=== PATIENT | female | born 1970 | race African-American/Black ===

== ENCOUNTER 2017-12-10 16:28 | Inpatient (IN) ==
[2017-12-10] MEDS ORDERED: Acetaminophen 325 MG Tablet PO ONE (16:59)
[2017-12-10] MEDS ORDERED: hydrALAZINE HCl Inj 20 MG/ML Vial IV.PUSH ONE (16:59)
[2017-12-10 17:14] LABS: Baso # (Auto) 0.1 th/mm3 (0.0-0.2); Baso % (Auto) 0.8 % (0.0-2.0); Eos # (Auto) 0.1 th/mm3 (0.0-0.4); Hematocrit 38.7 % (35.0-46.0); Hemoglobin 12.5 gm/dL (11.6-15.3); Lymph # (Auto) 1.7 th/mm3 (1.0-4.8); Lymph % (Auto) 25.6 % (9.0-44.0); Mean Corpuscular HGB Conc 32.4 % (32.0-36.0); Mean Corpuscular Hemoglobin 25.5 pg (27.0-34.0); Mean Corpuscular Volume 78.6 fL (80.0-100.0); Mean Platelet Volume 7.6 fL (7.0-11.0); Mono # (Auto) 0.4 th/mm3 (0.0-0.9); Mono % (Auto) 6.1 % (0.0-8.0); Neut # (Auto) 4.2 th/mm3 (1.8-7.7); Neut % (Auto) 65.5 % (16.0-70.0); Platelet Count 325 th/mm3 (150-450); Red Blood Count 4.92 mil/mm3 (4.00-5.30); Red Cell Distribution Width 14.4 % (11.6-17.2); White Blood Count 6.5 th/mm3 (4.0-11.0)
[2017-12-10 17:20] LABS: Chloride 106 meq/L (98-107); Potassium 3.4 meq/L (3.5-5.1); Sodium 141 meq/L (136-145)
--- NOTE | 2017-12-10 17:20 | XR ---
EXAM DATE: 12/10/2017 4:59 PM EDT AGE/SEX: 47 years / Female INDICATIONS: Patient states high blood pressure today. CLINICAL DATA: This is the patient's initial encounter. Patient reports that signs and symptoms have been present for 1 day and indicates a pain score of 0/10. MEDICAL/SURGICAL HISTORY: Hypertension. None. COMPARISON: No prior exams available for comparison. FINDINGS: A single AP view of the chest demonstrates the lungs to be symmetrically aerated without evidence of mass, infiltrate or effusion. The cardiomediastinal contours are unremarkable. Osseous structures a re intact. CONCLUSION: No acute intrathoracic disease. Electronically signed by: Zachery Ag MD 12/10/2017 5:19 PM EDT
[2017-12-10 17:23] LABS: Albumin 3.9 g/dL (3.4-5.0); Anion Gap 9 meq/L (5-15); Blood Urea Nitrogen 21 mg/dL (7-18); Calcium 9.8 mg/dL (8.5-10.1); Carbon Dioxide 25.8 meq/L (21.0-32.0); Glucose,Random 85 mg/dL (74-106)
[2017-12-10 17:26] LABS: Alanine Aminotransferase 18 U/L (10-53)
[2017-12-10 17:27] LABS: Aspartate Aminotransferase 15 U/L (15-37); Glomerular Filtration Rate 45 mL/min (>89)
[2017-12-10 17:28] LABS: Total Protein 7.5 g/dL (6.4-8.2)
[2017-12-10 17:29] LABS: Alkaline Phosphatase 118 U/L (45-117)
[2017-12-10 17:40] LABS: Activated Partial Thrombo Time 30.3 sec (24.3-30.1); Prothrombin Time 10.6 sec (9.8-11.6)
[2017-12-10 17:41] LABS: Creatine Kinase 74 U/L (26-192)
--- NOTE | 2017-12-10 17:51 | CT ---
EXAM DATE: 12/10/2017 5:11 PM EDT AGE/SEX: 47 years / Female INDICATIONS: Headache. CLINICAL DATA: This is the patient's initial encounter. Patient reports that signs and symptoms have been present for 1 week and indicates a pain score of 8/10. MEDICAL/SURGICAL HISTORY: Hypertension. Hysterectomy. RADIATION DOSE: 52.56 CTDI (mGy) COMPARISON: No prior exams available for comparison. TECHNIQUE: CT of the head without contrast. Using automated exposure control and adjustment of the mA and/or kV according to patient size, radiation dose was kept as low as reasonably achievable to ob tain optimal diagnostic quality images. DICOM format image data is available electronically for revi ew and comparison. FINDINGS: Cerebrum: The ventricles are normal for age. No evidence of midline shift, mass lesion, hemorrhage or acute infarction. No extraaxial fluid collections are seen. Posterior Fossa: The cerebellum and brainstem are intact. The 4th ventricle is midline. The cerebe llopontine angle is unremarkable. Extracranial: The visualized portion of the orbits is intact. Skull: The calvaria is intact. No evidence of skull fracture. CONCLUSION: 1. Unremarkable CT scan of the brain. . Electronically signed by: Zachery Ag MD 12/10/2017 5:50 PM EDT
[2017-12-10] MEDS ORDERED: Sod Chloride 0.9% Inj 1,000 ML IV.SIG SCH (18:15)
--- NOTE | 2017-12-10 19:01 | ED ---
HPI General Chief complaint: Hypertension Stated complaint: high bp Time Seen by Provider: 12/10/17 16:45 Source: patient Mode of arrival: ambulatory Limitations: no limitations History of Present Illness HPI narrative: Patient is a 47 year old female who comes in complaining of headache, left arm pain, and high blood pressure. She was here 3 weeks ago and discharged with Metoprolol. She says that Metoprolol does not work for her blood pressure. She went to a primary care doctor today, who took her blood pressure and told her to come immediately to the ED because it was too high. She says she has nausea and vomiting. She denies chest pain. She says she just doesn't feel well. Her says she has been weak and tired. Severity is moderate. Related Data Previous Rx's Medication Instructions Recorded metoprolol succinate 50 mg PO DAILY #20 each 11/18/17 Allergies Allergy/AdvReac Type Severity Reaction Status Date / Time No Known Allergies Allergy Verified 12/10/17 16:35 Review of Systems ROS: all other systems reviewed are negative Constitutional Denies chills and Denies fever(s) ENT Reports dizziness and Reports headache(s) Cardiovascular Denies syncope Respiratory Denies cough and Denies dyspnea Gastrointestinal Reports nausea and Reports vomiting Musculoskeletal Denies myalgias and Denies arthralgias Integumentary/Breasts Denies sores and Denies wounds Neurologic Denies lack of coordination and Denies focal weakness [facility] Medical History Medical History History of hypertension (Acute) Surgical History Surgical History History of partial hysterectomy (Acute) Social History Social History Substance History: No History of Abuse Smoking Status: Never smoker How Often Do You Have a Drink Containing Alcohol: Never Recent Travel in [facility] within the Last 8 Weeks: No Recent Out of Country Travel within the Last 8 Weeks: No Immunization History Tetanus Immunization: <5 Years Exam Narrative Exam Narrative: GENERAL: Awake and alert, appears uncomfortable. SKIN: Focused skin assessment warm/dry. HEAD: Atraumatic. Normocephalic. EYES: Pupils equal and round and reactive. No scleral icterus. EOMI. ENT: Mucous membranes pink and moist. NECK: Trachea midline. No JVD. CARDIOVASCULAR: Regular rate and rhythm. No murmur appreciated. RESPIRATORY: No accessory muscle use. Clear to auscultation. Breath sounds equal bilaterally. GASTROINTESTINAL: Abdomen soft, non-tender, nondistended. MUSCULOSKELETAL: No obvious deformities. No clubbing. No cyanosis. No edema. NEUROLOGICAL: Awake and alert. No obvious cranial nerve deficits. Motor grossly within normal limits. Normal speech. PSYCHIATRIC: Appropriate mood and affect; insight and judgment normal. Course Initial Documented Vital Signs Temperature 99 F 12/10/17 16:31 Pulse Rate 106 H 12/10/17 16:31 Respiratory Rate 16 12/10/17 16:31 Blood Pressure 245/152 H 12/10/17 16:31 Pulse Oximetry 99 12/10/17 16:31 Last Documented Vital Signs Temperature 99 F 12/10/17 16:31 Pulse Rate 111 H 12/10/17 19:03 Respiratory Rate 16 12/10/17 19:03 Blood Pressure 192/94 H 12/10/17 19:20 Pulse Oximetry 94 L 12/10/17 19:03 Medical Decision Making [facility] Narrative Medical decision making narrative: Patient is a 47-year-old female who comes in complaining of headache, nausea, vomiting, left arm pain, high blood pressure. Exam shows no neurologic abnormalities. IV established, labs sent. Patient given Tylenol, p.o. Benadryl, Compazine. Given a dose of hydralazine as her initial blood pressure was 254 systolic. While here, patient had an episode where she became diaphoretic and dizzy. She was helped back to the bed and her blood pressure was found to be 90 systolic. She was given IV fluids, and her blood pressure improved. She received a total of about 250 mL. On arrival, her ECG showed normal sinus rhythm, rate of 95, no ST elevation or depression. After the episode of dizziness and diaphoresis, ECG was repeated with T wave inversions found to be in leads V3 through V5. Patient never did experience any chest pain. CT head performed shows no acute abnormalities. Patient's blood pressure is quite labile, there is concern for ischemia. I believe she would benefit from admission. Medical Screen Exam Complete: Yes Emergency Medical Condition: Yes Differential Diagnosis Differential Diagnosis: Hypertensive urgency versus migraine versus [facility] Medical Records Medical records reviewed: Yes I reviewed the patient's medical records. Lab Data Lab results reviewed: Yes I reviewed the patient's lab results. Result diagrams: 12/10/17 17:00 12/10/17 17:00 Lab Results 12/10/17 12/10/17 12/10/17 Range/Units 17:00 17:00 17:00 CBC w Diff Auto diff final WBC 6.5 (4.0-11.0) th/mm3 RBC 4.92 (4.00-5.30) mil/mm3 Hgb 12.5 (11.6-15.3) gm/dL Hct 38.7 (35.0-46.0) % MCV 78.6 L (80.0-100.0) fL MCH 25.5 L (27.0-34.0) pg MCHC 32.4 (32.0-36.0) % RDW 14.4 (11.6-17.2) % Plt Count 325 (150-450) th/mm3 MPV 7.6 (7.0-11.0) fL Neut % (Auto) 65.5 (16.0-70.0) % Lymph % (Auto) 25.6 (9.0-44.0) % Door % (Auto) 6.1 (0.0-8.0) % Eos % (Auto) 2.0 (0.0-4.0) % Baso % (Auto) 0.8 (0.0-2.0) % Neut # (Auto) 4.2 (1.8-7.7) th/mm3 Lymph # (Auto) 1.7 (1.0-4.8) th/mm3 Door # (Auto) 0.4 (0.0-0.9) th/mm3 Eos # (Auto) 0.1 (0.0-0.4) th/mm3 Baso # (Auto) 0.1 (0.0-0.2) th/mm3 WBC Differential . Differential Comment . PT 10.6 (9.8-11.6) sec INR 1.0 Ratio APTT 30.3 H (24.3-30.1) sec Sodium 141 (136-145) meq/L Potassium 3.4 L (3.5-5.1) meq/L Chloride 106 (98-107) meq/L Carbon Dioxide 25.8 (21.0-32.0) meq/L Anion Gap 9 (5-15) meq/L BUN 21 H (7-18) mg/dL Creatinine 1.50 H (0.50-1.00) mg/dL Estimated GFR 45 L (>89) mL/min Random Glucose 85 (74-106) mg/dL Calcium 9.8 (8.5-10.1) mg/dL Total Bilirubin 0.5 (0.2-1.0) mg/dL AST 15 (15-37) U/L ALT 18 (10-53) U/L Alkaline Phosphatase 118 H (45-117) U/L Total Creatine Kinase 74 (26-192) U/L Troponin I Less than 0.02 L (0.02-0.05) ng/mL Total Protein 7.5 (6.4-8.2) g/dL Albumin 3.9 (3.4-5.0) g/dL Imaging Data Radiologist's impression: Chest X-Ray 12/10/17 16:59 CONCLUSION: No acute intrathoracic disease. Head CT 12/10/17 16:59 CONCLUSION: 1. Unremarkable CT scan of the brain. . ECG Data EKG Prior to Arrival: No Attestation: I personally reviewed and interpreted this ECG as follows: Interpretation: ECG 1: NSR at rate of 95, no ST elevation or depression, normal intervals ECG 2 (18:20), NSR at rate of 81. No ST elevation or depression, new T wave inversions leads V3-V5 Discharge Plan Discharge Disposition Patient Disposition: 30 Still Patient Discharge Condition Condition: Stable Discharge Details Diagnosis: Hypertensive urgency Physicians Team ED Provider: Danyell Perez Primary Care Provider: Primary Care Sarah Mclain Rxs /Orders / Referrals /Forms Prescriptions: No Action metoprolol succinate 50 mg cap,sprinkle,ER 24hr dose pack 50 mg PO DAILY Qty: 20 RF: 0 Status ED Status: With Doctor
[2017-12-10] MEDS: Acetaminophen 325 MG Tablet PO PRN (20:56)
[2017-12-11 01:59] LABS: Troponin I 0.19 ng/mL (0.02-0.05)
[2017-12-11] MEDS: Acetaminophen 325 MG Tablet PO PRN ×2 (03:02→10:52)
[2017-12-11 05:10] LABS: Baso # (Auto) 0.4 th/mm3 (0.0-0.2); Baso % (Auto) 4.8 % (0.0-2.0); Eos % (Auto) 0.1 % (0.0-4.0); Hematocrit 36.7 % (35.0-46.0); Hemoglobin 12.1 gm/dL (11.6-15.3); Lymph # (Auto) 1.2 th/mm3 (1.0-4.8); Mean Corpuscular Hemoglobin 25.8 pg (27.0-34.0); Mean Corpuscular Volume 77.9 fL (80.0-100.0); Mono # (Auto) 0.4 th/mm3 (0.0-0.9); Mono % (Auto) 4.6 % (0.0-8.0); Neut # (Auto) 5.7 th/mm3 (1.8-7.7); Neut % (Auto) 75.5 % (16.0-70.0); Platelet Count 311 th/mm3 (150-450); Potassium 3.4 meq/L (3.5-5.1); Red Blood Count 4.72 mil/mm3 (4.00-5.30); Red Cell Distribution Width 14.8 % (11.6-17.2); White Blood Count 7.7 th/mm3 (4.0-11.0)
[2017-12-11 05:14] LABS: Calcium 9.8 mg/dL (8.5-10.1)
[2017-12-11 05:15] LABS: Carbon Dioxide 24.1 meq/L (21.0-32.0)
[2017-12-11 05:24] LABS: Troponin I 0.13 ng/mL (0.02-0.05)
[2017-12-11] MEDS ORDERED: hydrALAZINE HCl Inj 20 MG/ML Vial IV.PUSH PRN (10:15)
--- NOTE | 2017-12-11 14:17 | P.HP ---
History of Present Illness Primary Care Physician: No Primary Care Physician Chief Complaint: Elevated blood pressure History of Present Illness: 47-year-old female with long-standing history of hypertension who presented to the hospital the request of [facility] for evaluation of elevated blood pressure. Patient states that she was being [place] for high blood pressure on combination of amlodipine, clonidine with control of her blood pressure. Patient moved down here from [place] and started going to Dr. Bowden about a year ago. She and her indicates that they did not want to continue with Dr. Bowden and has not been to a primary medical doctor and in a few months. She indicates that she was put on metoprolol without any improvement of her blood pressure. She did come to the emergency department 1 month ago and was started on metoprolol again, she states that she took the medication until completion, records indicate that the patient was given 20 days worth of blood pressure medication. Patient indicates that they went to [facility] and was told to come to the emergency department for evaluation because blood pressure was 220/129. On presentation to the emergency department patient did have blood pressure 245/152. Patient was given Apresoline and clonidine with significant improvement of her blood pressure. Patient states that her only symptom was headache. She denied any chest pain, shortness of breath, dyspnea, lightheadedness, dizziness, diaphoresis. - Diagnosis (1) Hypertensive urgency Inpatient Certification: I certify that the inpatient services were ordered in accordance with Medicare regulations governing the order. This includes certification that hospital inpatient services are reasonable and necessary and in the case of services not specified as inpatient-only under 42 CFR 419.22(n), that they are appropriately provided as inpatient services in accordance to with the 2-midnight benchmark under 43 CFR 412.3(e) Estimated Total Length of Stay (Days): 2 Plans for Post Hospital Care: Home Review of Systems All other systems reviewed negative except as stated in HPI Neurologic: Reports headache(s) PMFSH - History History Provided By: Patient, Family Member - Medical History Medical History: Medical History (Last Reviewed 12/10/17 @ 19:08 by Danyell Perez MD) History of hypertension - Surgical History Surgical History: Surgical History (Last Reviewed 12/10/17 @ 19:08 by Danyell Perez MD) History of partial hysterectomy - Family History Family History: Family History (Last Updated 12/11/17 @ 14:06 by AIMEE Martines) Mother Family history of hypertension - Tobacco History Smoking Status: Never smoker - Alcohol History How Often Do You Have a Drink Containing Alcohol: Never - Substance Use History Substance History: No History of Abuse - Travel History Recent Travel in the [place] Within the Last 8 Weeks: No Recent Travel Out of the Country Within the Last 8 Weeks: No - Immunization History Tetanus Immunization: <5 Years Medications and Allergies Active Medications: Active Medications Acetaminophen (Tylenol) 650 mg PO Q4H PRN PRN Reason: HEADACHE Last Admin: 12/11/17 10:52 Dose: 650 mg Clonidine HCl (Catapres) 0.1 mg PO Q6H PRN PRN Reason: SBP>160, DBP>90 Last Admin: 12/11/17 10:52 Dose: 0.1 mg Clonidine HCl (Catapress-Tts 0.1 Mg Patch.7d) 1 patch T-DERMAL Q7D ROBE Enalaprilat (Vasotec Inj) 1.25 mg IV.PUSH Q6H PRN PRN Reason: SBP>160, DBP>90 Sodium Chloride (Ns Inj) 1,000 mls @ 0 mls/hr IV.SIG BOLUS ROBE Ondansetron HCl (Zofran Inj) 4 mg IV.PUSH Q6H PRN PRN Reason: NAUSEA OR VOMITING Last Admin: 12/11/17 01:19 Dose: 4 mg Patch Removal (Remove Old Patch) 1 each T-DERMAL Q7D ROBE Sodium Chloride (Ns Flush) 2 ml IV.FLUSH UNSCH PRN PRN Reason: FLUSH AFTER USING IV ACCESS Last Admin: 12/11/17 01:19 Dose: 2 ml Allergies Allergy/AdvReac Type Severity Reaction Status Date / Time No Known Allergies Allergy Verified 12/10/17 16:35 Exam Vital signs: Vital Signs 12/10/17 16:31 12/10/17 17:20 12/10/17 18:15 Temperature 99 F Pulse Rate 106 H 100 H 98 H Respiratory Rate 16 18 14 Blood Pressure 245/152 H 229/132 H 108/61 Pulse Oximetry 99 95 97 12/10/17 19:03 12/10/17 19:20 12/10/17 20:00 Temperature 98.7 F Pulse Rate 111 H 99 H Respiratory Rate 16 16 Blood Pressure 192/112 H 192/94 H 211/118 H Pulse Oximetry 94 L 99 12/10/17 20:20 12/10/17 20:22 12/10/17 20:28 Temperature Pulse Rate 110 H Respiratory Rate 14 Blood Pressure 211/118 H 213/109 H Pulse Oximetry 97 98 12/10/17 20:30 12/10/17 20:57 12/10/17 21:00 Temperature Pulse Rate 122 H 106 H 102 H Respiratory Rate 14 13 Blood Pressure 193/106 H 199/106 H Pulse Oximetry 98 12/10/17 21:15 12/10/17 21:30 12/10/17 21:45 Temperature Pulse Rate 114 H 100 H 104 H Respiratory Rate 13 12 13 Blood Pressure 189/109 H 180/97 H 164/89 H Pulse Oximetry 12/10/17 22:00 12/10/17 22:15 12/10/17 22:30 Temperature Pulse Rate 102 H 96 H 102 H Respiratory Rate 13 12 12 Blood Pressure 160/93 H 177/110 H 178/92 H Pulse Oximetry 12/10/17 22:45 12/10/17 23:00 12/10/17 23:29 Temperature Pulse Rate 102 H 102 H 102 H Respiratory Rate 13 15 14 Blood Pressure 161/87 H 135/91 H Pulse Oximetry 95 12/10/17 23:59 12/11/17 00:00 12/11/17 00:29 Temperature 98.7 F Pulse Rate 92 H 92 H 88 Respiratory Rate 13 15 14 Blood Pressure 161/88 H 161/88 H 159/94 H Pulse Oximetry 97 97 96 12/11/17 01:00 12/11/17 01:30 12/11/17 02:00 Temperature Pulse Rate 96 H 80 86 Respiratory Rate 23 11 L 11 L Blood Pressure 185/115 H 195/113 H 164/91 H Pulse Oximetry 98 97 97 12/11/17 05:28 12/11/17 07:00 12/11/17 08:00 Temperature Pulse Rate 86 82 Respiratory Rate 11 L 10 L Blood Pressure 162/104 H 160/83 H Pulse Oximetry 97 97 97 12/11/17 08:18 12/11/17 09:00 12/11/17 10:00 Temperature Pulse Rate 88 Respiratory Rate 11 L Blood Pressure 156/93 H 160/104 H Pulse Oximetry 97 12/11/17 10:07 12/11/17 11:00 12/11/17 11:58 Temperature 98.9 F Pulse Rate 86 92 H 94 H Respiratory Rate 11 L 13 10 L Blood Pressure 170/99 H 180/105 H 193/112 H Pulse Oximetry 12/11/17 12:19 12/11/17 13:24 Temperature Pulse Rate 90 Respiratory Rate 12 Blood Pressure 166/95 H 163/98 H Pulse Oximetry Intake & Output 12/10/17 12/11/17 12/11/17 18:59 06:59 18:59 Intake Total 240 / 240 Output Total 450 / 450 Balance -210 / -210 Weight 58.5 kg 56.6 kg Intake: Oral 240 / 240 Output: Urine 450 / 450 Other: Date of Last Bowel Movement 12/09/17 12/09/17 Weight On Admission 56.6 kg Narrative: GENERAL: Well-developed, well-nourished, in no acute distress. alert and orientated HEENT: Head is normocephalic without any lesions or masses noted. Facial features are symmetric. Eyes: Pupils equal round reactive to light. Extraocular muscles are intact. Conjunctivae were clear. Oropharyngeal: Pharynx without any erythema edema. Tongue is midline without deviation. Buccal mucosa is moist without any masses or lesions NECK: Supple without any masses. Trachea midline no deviation. No JVD, no bruits are appreciated CARDIAC: Regular rhythm, regular rate. S1/S2 are heard. 2/6 ejection murmur, no gallops or rubs. LUNGS: Clear to auscultation bilaterally. No wheeze, rhonchi or rales. No use of accessory muscles on inspiration or expiration. ABDOMEN: Soft, nontender. Nondistended. Bowel sounds heard in all 4 quadrants. No organomegaly or masses. Negative rebound, negative guarding EXTREMITIES: No edema, pulses are equal bilaterally. No cyanosis or clubbing NEUROLOGY: Mood and affect appear appropriate. Cranial nerves II through XII grossly intact. Muscle strength 5/5 in upper and lower extremities bilaterally. Deep tendon reflexes are 2+ in upper and lower extremities bilaterally. Results - Labs CBC & Chem 7: 12/11/17 04:35 12/11/17 04:35 Labs: Laboratory Results - last 24 hr 12/10/17 12/10/17 12/10/17 17:00 17:00 17:00 CBC w Diff Auto diff final WBC 6.5 RBC 4.92 Hgb 12.5 Hct 38.7 MCV 78.6 L MCH 25.5 L MCHC 32.4 RDW 14.4 Plt Count 325 MPV 7.6 Neut % (Auto) 65.5 Lymph % (Auto) 25.6 [place] % (Auto) 6.1 Eos % (Auto) 2.0 Baso % (Auto) 0.8 Neut # (Auto) 4.2 Lymph # (Auto) 1.7 [place] # (Auto) 0.4 Eos # (Auto) 0.1 Baso # (Auto) 0.1 WBC Differential . Differential Comment . PT 10.6 INR 1.0 APTT 30.3 H Sodium 141 Potassium 3.4 L Chloride 106 Carbon Dioxide 25.8 Anion Gap 9 BUN 21 H Creatinine 1.50 H Estimated GFR 45 L Random Glucose 85 Calcium 9.8 Total Bilirubin 0.5 AST 15 ALT 18 Alkaline Phosphatase 118 H Total Creatine Kinase 74 Troponin I Less than 0.02 L Total Protein 7.5 Albumin 3.9 12/11/17 12/11/17 12/11/17 01:30 04:35 04:35 CBC w Diff Auto diff final WBC 7.7 RBC 4.72 Hgb 12.1 Hct 36.7 MCV 77.9 L MCH 25.8 L MCHC 33.0 RDW 14.8 Plt Count 311 MPV 9.0 Neut % (Auto) 75.5 H Lymph % (Auto) 15.0 [place] % (Auto) 4.6 Eos % (Auto) 0.1 Baso % (Auto) 4.8 H Neut # (Auto) 5.7 Lymph # (Auto) 1.2 [place] # (Auto) 0.4 Eos # (Auto) 0.0 Baso # (Auto) 0.4 H WBC Differential . Differential Comment . PT INR APTT Sodium 140 Potassium 3.4 L Chloride 105 Carbon Dioxide 24.1 Anion Gap 11 BUN 22 H Creatinine 1.60 H Estimated GFR 41 L Random Glucose 91 Calcium 9.8 Total Bilirubin AST ALT Alkaline Phosphatase Total Creatine Kinase 64 Troponin I 0.19 H D Total Protein Albumin 12/11/17 04:35 CBC w Diff WBC RBC Hgb Hct MCV MCH MCHC RDW Plt Count MPV Neut % (Auto) Lymph % (Auto) [place] % (Auto) Eos % (Auto) Baso % (Auto) Neut # (Auto) Lymph # (Auto) [place] # (Auto) Eos # (Auto) Baso # (Auto) WBC Differential Differential Comment PT INR APTT Sodium Potassium Chloride Carbon Dioxide Anion Gap BUN Creatinine Estimated GFR Random Glucose Calcium Total Bilirubin AST ALT Alkaline Phosphatase Total Creatine Kinase 66 Troponin I 0.13 H Total Protein Albumin - Imaging Impressions Chest X-Ray 12/10/17 16:59 CONCLUSION: No acute intrathoracic disease. Head CT 12/10/17 16:59 CONCLUSION: 1. Unremarkable CT scan of the brain. . Caprini VTE Risk Assessment Caprini VTE Risk Assessment: Moderate/High Risk (score >= 2) Caprini Risk Assessment Model: Point Value = 1 Point Value = 2 Point Value = 3 Point Value = 5 Age 41-60 Minor surgery BMI > 25 kg/m2 Swollen legs Varicose veins or History of unexplained or recurrent spontaneous Oral contraceptives or hormone replacement Sepsis (< 1 month) Serious lung disease, including pneumonia (< 1 month) Abnormal pulmonary function Acute myocardial infarction Congestive heart failure (< 1 month) History of inflammatory bowel disease Medical patient at bed rest Age 61-74 Arthroscopic surgery Major open surgery (> 45 min) Laparoscopic surgery (> 45 min) Malignancy Confined to bed (> 72 hours) Immobilizing plaster cast Central venous access Age >= 75 History of VTE Family history of VTE Factor V Leiden Prothrombin [id number] Lupus anticoagulant Anticardiolipin antibodies Elevated serum homocysteine Heparin-induced thrombocytopenia Other congenital or acquired thrombophilia Stroke (< 1 month) Elective arthroplasty Hip, pelvis, or leg fracture Acute spinal cord injury (< 1 month) Prophylaxis Regimen: Total Risk Factor Score Risk Level Prophylaxis Regimen 0-1 Low Early ambulation 2 Moderate Order ONE of the following: *Sequential Compression Device (SCD) *Heparin 5000 units SQ BID 3-4 Higher Order ONE of the following medications: *Heparin 5000 units SQ TID *Enoxaparin/Lovenox 40 mg SQ daily (WT < 150 kg, CrCl > 30 mL/min) *Enoxaparin/Lovenox 30 mg SQ daily (WT < 150 kg, CrCl > 10-29 mL/min) *Enoxaparin/Lovenox 30 mg SQ BID (WT < 150 kg, CrCl > 30 mL/min) AND/OR *Sequential Compression Device (SCD) 5 or more Highest Order ONE of the following medications: *Heparin 5000 units SQ TID (Preferred with Epidurals) *Enoxaparin/Lovenox 40 mg SQ daily (WT < 150 kg, CrCl > 30 mL/min) *Enoxaparin/Lovenox 30 mg SQ daily (WT < 150 kg, CrCl > 10-29 mL/min) *Enoxaparin/Lovenox 30 mg SQ BID (WT < 150 kg, CrCl > 30 mL/min) AND *Sequential Compression Device (SCD) Assessment and Plan - Assessment (1) Hypertensive urgency Code(s): I16.0 - Hypertensive urgency Status: Acute - Plan Hypertensive urgency -Patient with good response to Apresoline/clonidine in the emergency department. Only required one more dose of as needed clonidine since admission -We will start Catapres 0.1 mg patch to help with stability of blood pressure -Obtain MRA of the abdomen to evaluate for renal artery stenosis -Obtain 24-hour urine catecholamines Elevated troponin -Likely secondary to demand ischemia from uncontrolled hypertension -Patient had a acute elevation to 0.19, however has trended down to 0.13 -Consult cardiology for further recommendations -Physical exam indicated patient has cardiac murmur, will obtain echocardiogram Azotemia, unknown whether acute versus chronic -Patient had ER visit a month ago and had GFR of 53, what appears the patient likely has chronic kidney disease stage III, 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
[2017-12-11] MEDS: niCARdipine Inj 25 MG in Sodium Chlor 0.9% Inj 240 ML IV.CONT PRN ×2 (17:53→20:50)
[2017-12-12] MEDS: niCARdipine Inj 25 MG in Sodium Chlor 0.9% Inj 240 ML IV.CONT PRN (01:40)
[2017-12-12 05:11] LABS: Potassium 3.2 meq/L (3.5-5.1)
[2017-12-12 05:13] LABS: Calcium 9.6 mg/dL (8.5-10.1)
[2017-12-12 05:14] LABS: Carbon Dioxide 29.3 meq/L (21.0-32.0)
[2017-12-12 08:22] LABS: Troponin I 0.05 ng/mL (0.02-0.05)
[2017-12-12] MEDS: amLODIPine 10 MG Tablet PO SCH (08:24)
--- NOTE | 2017-12-12 08:26 | P.PN ---
Subjective Interval history: 47-year-old female who is seen and examined today for hypertensive urgency. Patient is doing much better on Cardene drip. Case discussed extensively with lens silverer. Patient states that she does feel much better. Headache has almost completely subsided. Blood pressure is improved. Patient remains afebrile. Physical Exam Vital signs: Vital Signs 12/11/17 09:00 12/11/17 10:00 12/11/17 10:07 Temperature Pulse Rate 88 86 Respiratory Rate 11 L 11 L Blood Pressure 156/93 H 160/104 H 170/99 H Pulse Oximetry 12/11/17 11:00 12/11/17 11:58 12/11/17 12:19 Temperature 98.9 F Pulse Rate 92 H 94 H 90 Respiratory Rate 13 10 L 12 Blood Pressure 180/105 H 193/112 H 166/95 H Pulse Oximetry 12/11/17 13:21 12/11/17 13:24 12/11/17 14:00 Temperature Pulse Rate 94 H 86 Respiratory Rate 15 11 L Blood Pressure 163/78 H 163/98 H 169/87 H Pulse Oximetry 12/11/17 15:00 12/11/17 16:00 12/11/17 16:52 Temperature Pulse Rate 78 76 88 Respiratory Rate 10 L 11 L 14 Blood Pressure 183/97 H 197/111 H 202/131 H Pulse Oximetry 12/11/17 17:00 12/11/17 17:26 12/11/17 18:15 Temperature Pulse Rate 96 H 82 94 H Respiratory Rate 21 10 L 11 L Blood Pressure 226/119 H 197/112 H 186/101 H Pulse Oximetry 12/11/17 19:55 12/11/17 20:00 12/12/17 00:00 Temperature 98.9 F 98.5 F Pulse Rate 118 H 102 H Respiratory Rate 14 12 Blood Pressure 129/71 149/84 H Pulse Oximetry 95 96 96 12/12/17 04:00 Temperature 98.2 F Pulse Rate 80 Respiratory Rate 10 L Blood Pressure 136/75 Pulse Oximetry 95 Intake & Output 12/11/17 12/12/17 12/12/17 18:59 06:59 18:59 Intake Total 1106 / 1106 Output Total 550 / 550 1250 / 1250 Balance -550 / -550 -144 / -144 Weight 56.8 kg Intake: IV 626 / 626 Cardene Inj 25 MG In NS Inj 240 626 / 626 ML @ 5 MG/HR 50 mls/hr IV.CONT TITRATE PRN Rx#:[id number] Oral 480 / 480 Output: Urine 550 / 550 1250 / 1250 Other: Date of Last Bowel Movement 12/09/17 12/09/17 # Bowel Movements 0 Narrative: GENERAL: Well-developed, well-nourished, in no acute distress. alert and orientated HEENT: Head is normocephalic without any lesions or masses noted. Facial features are symmetric. Eyes: Extraocular muscles are intact. Conjunctivae were clear. NECK: Supple without any masses. Trachea midline no deviation. No JVD, CARDIAC: Regular rhythm, regular rate. S1/S2 are heard. 2/6 ejection murmur, no gallops or rubs. LUNGS: Clear to auscultation bilaterally. No wheeze, rhonchi or rales. No use of accessory muscles on inspiration or expiration. ABDOMEN: Soft, nontender. Nondistended. Bowel sounds heard in all 4 quadrants. No organomegaly or masses. Negative rebound, negative guarding EXTREMITIES: No edema, pulses are equal bilaterally. No cyanosis or clubbing NEUROLOGY: Mood and affect appear appropriate. Cranial nerves II through XII grossly intact. Moving all extremities, speech is clear Results - Labs CBC & Chem 7: 12/11/17 04:35 12/12/17 04:33 Laboratory Results - last 24 hr 12/12/17 04:33 Sodium 140 Potassium 3.2 L Chloride 104 Carbon Dioxide 29.3 Anion Gap 7 BUN 20 H Creatinine 1.60 H Estimated GFR 41 L Random Glucose 127 H Calcium 9.6 Assessment and Plan - Assessment (1) Hypertensive urgency Code(s): I16.0 - Hypertensive urgency Status: Acute - Plan Hypertensive urgency -Patient with good response to Apresoline/clonidine in the emergency department. Only required one more dose of as needed clonidine since admission -Started Catapres 0.1 mg patch to help with stability of blood pressure, however blood pressure did not stabilize -Patient started on Cardene drip with improvement in blood pressure -Discussed with cardiology who indicated starting amlodipine 10 mg daily, resuming metoprolol, and discontinuing Cardene drip, discontinuing clonidine patch and use clonidine p.o. as needed -Obtain MRA of the abdomen to evaluate for renal artery stenosis -Obtain 24-hour urine catecholamines Elevated troponin -Likely secondary to demand ischemia from uncontrolled hypertension -Patient had a acute elevation to 0.19, however has trended down to 0.13 -Consult cardiology for further recommendations, who recommended control of blood pressure and await echocardiogram report -Physical exam indicated patient has cardiac murmur, awaiting echocardiogram Azotemia, unknown whether acute versus chronic -Patient had ER visit a month ago and had GFR of 53, what appears the patient likely has chronic kidney disease stage III, 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
--- NOTE | 2017-12-12 08:32 | MB ---
cc: Avani Cotton MD DATE: 12/12/2017 REASON FOR CONSULTATION: Elevated blood pressure and indeterminate troponin. HISTORY OF PRESENT ILLNESS: Ms. Kasia Perez is a 47-year-old female who has a longstanding history of difficult to control hypertension. She reports that she had been treated with amlodipine for her blood pressure. More recently, she was taken off of that and put on metoprolol. She has run out of her medications and was seen recently in the emergency room. After those medications ran out, she again had difficulty with her blood pressure. She reports that she has had headaches that were quite severe. She denied any chest pain, shortness of breath or dizziness. She is pain free this morning. PAST MEDICAL HISTORY: Significant for hypertension. OUTPATIENT MEDICATIONS: NONE. FAMILY HISTORY: Negative for CAD. SOCIAL HISTORY: The patient has never smoked. REVIEW OF SYSTEMS: Except as mentioned in the HPI, all 12 systems are negative. PHYSICAL EXAMINATION: VITAL SIGNS: 98.2, 80, 15, 136/75. GENERAL: She is a well-appearing female, who is in no apparent distress. NECK: Free from JVD. LUNGS: Bilaterally clear to auscultation. CARDIOVASCULAR: She has a normal S1 and S2. No murmurs, rubs or gallops were appreciated. ABDOMEN: Soft. EXTREMITIES: Free from edema. LABORATORY VALUES: Significant for a creatinine of 1.5 and serial troponins of 0.02, 0.19, 0.13. EKG shows normal sinus rhythm with criteria for LVH and nonspecific ST-T wave changes. IMPRESSION: 1. Uncontrolled hypertension. The patient presented to the hospital with a systolic blood pressure of 245. She does not have any cardiac symptoms. At this point, she does need to get on some long-acting blood pressure medications. With her uninsured status, I discussed with her amlodipine and metoprolol, both of which she reports are affordable for her as outpatient. Clonidine patch is a generally cost prohibitive. The short-acting clonidine is problematic because of its extremely short half life. Thus, I would only use this for p.r.n. control of blood pressure spikes. I do agree with the nicardipine until her blood pressure is controlled with the long-acting medications. 2. Indeterminate troponin. I agree this is almost certainly secondary to uncontrolled hypertension with systolics over 200. Again, she does not have any cardiac symptoms. She is a poor revascularization candidate secondary to noncompliance. Long-term data supports dual vasodilators prior to considering any revascularization. Thus, I do believe it is reasonable to check an echocardiogram, and if her EF is normal it is reasonable to continue with medical management only at this time. 3. Chronic kidney disease. This is per the primary team. 4. Noncompliance. MD PADMINI Gilbert/derick , 07:47 AM , 07:56 AM
[2017-12-12 10:25] LABS: Chol/HDL Ratio 3.49 Ratio; HDL Cholesterol 44.6 mg/dL (40.0-60.0)
--- NOTE | 2017-12-12 10:37 | P.DIET ---
Nutritional Evaluation Type of nutrition evaluation: initial Nutrition consult regarding: Diet Evaluation Nutrition screening: Weight Loss > 10 lbs Subjective Subjective Comments: Pt reported a good appetite, eating 100% of lunch on 12/11. Pt currently tolerating diet well. Objective - Diagnosis hypertensive urgency - Objective Body Mass Index: 23.6 % IBW: 119 (IBW = 105lb) Body Weight Used for Calculations: Actual Energy Needs - Lower Range (kCal/kg): 25 Energy Needs - Upper Range (kCal/kg): 30 Lower Limit kCal/kg (kCals): 1,420 Upper Limit kCal/kg (kCals): 1,704 Lower Limit Protein Factor (Grams per Kg): 1.0 Lower Protein Needs (Protein): 57 Fluid Factor (ml/kg): 30 Estimated Fluid Needs (ml): 1,704 Dietitian Reviewed in Medical Record: Current diet, Curent medications, Intake & Output, Labs, Medical history Diet Order: cardiac diet Oral Diet Intake Amount: Good 75-90% Speech Therapy Recommendations: No Objective Comments: PMH: HTN, partial hysterectomy Meds: [place], Norvasc, Metoprolol, Zofran, Ativan Labs: K+ 3.2, Cr 1.6, GFR 41, random glucose 127 Assessment Assessment: Pt currently at nutritional risk r/t reported unplanned wt loss. Pt tolerating current diet with good PO intake. Will assess pts nutritional needs for a PO supplement as appropriate. Labs reviewed. Dietitian following Recommendations: 1. Will assess pts nutritional needs for a PO supplement as appropriate 2. Continue cardiac diet 3. Monitor PO intake 4. Dietitian following Dietitian to Monitor: Lab values, Intake & Output, Diet tolerance, Weight change , PO Intake, Medical course
[2017-12-12] MEDS ORDERED: Gadobutrol PF 10 MMOL/10 ML Vial (for RAD) IV.SIG ONE (12:46)
--- NOTE | 2017-12-12 13:01 | MR ---
EXAM DATE: 12/12/2017 6:59 AM EDT AGE/SEX: 47 years / Female INDICATIONS: . Renal artery stenosis. Hypertension. CLINICAL DATA: This is the patient's subsequent encounter. Patient reports that signs and symptoms h ave been present for 4 - 6 days and indicates a pain score of 0/10. MEDICAL/SURGICAL HISTORY: Hypertension. Hysterectomy. Left knee surgery. COMPARISON: No prior exams available for comparison. TECHNIQUE: 20 ml Gadavist (gadobutrol) contrast infused MR angiography (single exam dose) was perfo rmed with digital subtraction. The data was postprocessed with a variety of visualization algorithms including full-volume maximum-intensity projection, multiplanar sliding thin slab reformation, and c urved planar reformation. FINDINGS: Abdominal Aorta: The lumen is smooth without significant narrowing or aneurysmal dilation. The pr oximal celiac and superior mesenteric arteries are patent and normal in diameter. Renal Arteries: There are solitary renal arteries bilaterally. No evidence of ostial or segmental s tenosis. Kidneys: There is symmetric renal size. There is homogeneous enhancement in the parenchyma. Bifurcation: Normal. The proximal common iliac arteries are patent bilaterally. Retroperitoneum: The adrenal glands are unremarkable. No adenopathy seen. CONCLUSION: 1. Solitary bilateral renal arteries which are patent throughout their extent. No focal or high-grad e stenosis is demonstrated. 2. Otherwise, unremarkable examination. Electronically signed by: Zachery Ag MD 12/12/2017 1:00 PM EDT
--- NOTE | 2017-12-12 18:09 | ECHRPT ---
Indication: Hypertensive Heart Disease CONCLUSIONS The left ventricular systolic function is normal with an estimated ejection fraction in the range of 55-60%. Mild concentric left ventricular hypertrophy. Doppler parameters are consistent with impaired left ventricular relaxtion (grade 1 diastolic dysfun ction). [id number] mitral valve regurgitation. There is trace tricuspid valve regurgitation. Trivial pulmonary valve regurgitation. There is a trivial pericardial effusion present. No hemodynamically significant echocardiographic features were observed (no pre-tamponade physiology). BP: 151 / 88 HR: Rhythm: MEASUREMENTS (Male / Female) Normal Values Technical Quality:Fair 2D ECHO LV Diastolic Diameter PLAX 4.4 cm 4.2 - 5.9 / 3.9 - 5.3 cm LV Systolic Diameter PLAX 3.1 cm IVS Diastolic Thickness 1.2 cm 0.6 - 1.0 / 0.6 - 0.9 cm LVPW Diastolic Thickness 1.2 cm 0.6 - 1.0 / 0.6 - 0.9 cm LV Relative Wall Thickness 0.5 RV Internal Dim ED PLAX 3.1 cm LVOT Diameter 2.1 cm Aortic Root Diameter 2.8 cm LA Systolic Diameter LX 3.4 cm 3.0 - 4.0 / 2.7 - 3.8 cm DOPPLER AV Peak Velocity 163.0 cm/s AV Peak Gradient 10.6 mmHg LVOT Peak Velocity 114.0 cm/s LVOT Peak Gradient 5.2 mmHg AV Area Cont Eq pk 2.4 cm Mitral E Point Velocity 70.1 cm/s Mitral A Point Velocity 88.4 cm/s Mitral E to A Ratio 0.8 LV E' Lateral Velocity 6.0 cm/s Mitral E to LV E' Lateral Ratio 11.6 LV E' Septal Velocity 5.5 cm/s Mitral E to LV E' Septal Ratio 12.8 TR Peak Velocity 243.0 cm/s TR Peak Gradient 23.6 mmHg Right Atrial Pressure 10.0 mmHg Pulmonary Artery Systolic Pressu 33.6 mmHg Right Ventricular Systolic Press 33.6 mmHg PV Peak Velocity 99.1 cm/s PV Peak Gradient 3.9 mmHg FINDINGS LEFT VENTRICLE Normal left ventricular size. Mild concentric left ventricular hypertrophy. The left ventricular systolic function is normal with an estimated ejection fraction in the range of 55-60%. Doppler parameters are consistent with impaired left ventricular relaxtion (grade 1 diastolic dysfun ction). RIGHT VENTRICLE Normal right ventricular size and systolic function. LEFT ATRIUM The left atrial size is normal. RIGHT ATRIUM The right atrial size is normal. ATRIAL SEPTUM Normal atrial septal thickness AORTA The aortic root and proximal ascending aorta are normal in size on limited imaging. MITRAL VALVE Structurally normal mitral valve. [id number] mitral valve regurgitation. No mitral valve stenosis. AORTIC VALVE Trileaflet aortic valve. No aortic valve regurgitation. No aortic valve stenosis. TRICUSPID VALVE Structurally normal tricuspid valve. There is trace tricuspid valve regurgitation. The estimated pulmonary arterial pressure is 34 mmHg. PULMONARY VALVE Trivial pulmonary valve regurgitation. VESSELS The inferior vena cava is dilated. PERICARDIUM There is a trivial pericardial effusion present. No hemodynamically significant echocardiographic features were observed (no pre-tamponade physiology). Rick Bustos DO (Electronically Signed) Final Date:12 December 2017 18:09
--- NOTE | 2017-12-13 01:25 | ECG ---
Date Performed: 12/11/2017 Time Performed: 05:47:50 PTAGE: 47 years EKG: Sinus rhythm MODERATE VOLTAGE CRITERIA FOR LVH, CONSIDER NORMAL VARIANT NONSPECIFIC T-WAVE ABNORMALITY BORDERLINE ECG PREVIOUS TRACING : 12/11/2017 00.55 Since the previous tracing, no significant change noted DOCTOR: Rick Bustos Interpretating Date/Time 12/13/2017 01:24:19
--- NOTE | 2017-12-13 01:31 | ECG ---
Date Performed: 12/11/2017 Time Performed: 00:55:38 PTAGE: 47 years EKG: Sinus rhythm WITH SINUS ARRHYTHMIA MINIMAL VOLTAGE CRITERIA FOR LVH, CONSIDER NORMAL VARIANT NONSPECIFIC T-WAVE A BNORMALITY BORDERLINE ECG PREVIOUS TRACING : 12/10/2017 18.20 Compared to previous tracing, ST/T wave changes are less p rominent DOCTOR: Rick Bustos Interpretating Date/Time 12/13/2017 01:29:57
--- NOTE | 2017-12-13 01:48 | ECG ---
Date Performed: 12/10/2017 Time Performed: 18:20:04 PTAGE: 47 years EKG: Sinus rhythm WITH SINUS ARRHYTHMIA MODERATE VOLTAGE CRITERIA FOR LVH, CONSIDER NORMAL VARIANT MODERATE T-WAVE ABN ORMALITY, CONSIDER ANTEROLATERAL ISCHEMIA ABNORMAL ECG PREVIOUS TRACING : 12/10/2017 17.13 Compared to previous tracing, ST/T wave changes now noted, possible secondary to LVH DOCTOR: Rick Bustos Interpretating Date/Time 12/13/2017 01:47:54
--- NOTE | 2017-12-13 01:51 | ECG ---
Date Performed: 12/10/2017 Time Performed: 17:13:08 PTAGE: 47 years EKG: Sinus rhythm NORMAL ECG PREVIOUS TRACING : 11/17/2017 22.55 Since the previous tracing, no significant change noted DOCTOR: Rick Bustos Interpretating Date/Time 12/13/2017 01:49:42
[2017-12-13 05:09] VITALS: BP 136/68; RESP 13
[2017-12-13 08:28] VITALS: TEMP 98.2
--- NOTE | 2017-12-13 08:33 | P.DS ---
Date of admission: 12/10/17 19:44 Primary care physician: No Primary Care Physician Attending physician on discharge: Clemencia Escalante Anticipated date of discharge: 12/13/17 Brief History from admission: 47-year-old female with long-standing history of hypertension who presented to the hospital the request of [facility] for evaluation of elevated blood pressure. Patient states that she was being treated [place] for high blood pressure on combination of amlodipine, clonidine with control of her blood pressure. Patient moved down here from [place] and started going to Dr. Bowden about a year ago. She and her indicates that they did not want to continue with Dr. Bowden and has not been to a primary medical doctor and in a few months. She indicates that she was put on metoprolol without any improvement of her blood pressure. She did come to the emergency department 1 month ago and was started on metoprolol again, she states that she took the medication until completion, records indicate that the patient was given 20 days worth of blood pressure medication. Patient indicates that they went to [facility] and was told to come to the emergency department for evaluation because blood pressure was 220/129. On presentation to the emergency department patient did have blood pressure 245/152. Patient was given Apresoline and clonidine with significant improvement of her blood pressure. Patient states that her only symptom was headache. She denied any chest pain, shortness of breath, dyspnea, lightheadedness, dizziness, diaphoresis. DS: Diagnosis - Discharge Diagnosis (1) Hypertensive urgency Status: Acute DS: Medications - Discharge Medications Prescriptions: amlodipine [Norvasc] 10 mg PO DAILY #30 tab clonidine HCl [Catapres] 0.1 mg PO Q6H PRN #30 tab PRN Reason: Sbp>160, Dbp>90 metoprolol succinate 50 mg PO DAILY #30 tab DS: Summary Hospital Course: 47-year-old female with known history of hypertension who has had relatively unsuccessful with management of her blood pressure in outpatient setting due to medication availability, no primary medical doctor. Patient was referred to the hospital by [facility] because of her blood pressure being uncontrolled. Patient had evaluation in the emergency department and found to have hypertensive emergency with blood pressure 245/152. Patient did not complain of any type of chest pain, shortness of breath, dyspnea. She did have a headache. Denied any visual changes, weakness, paresthesia. Patient was admitted to the ICU for medical management. The patient was resumed on metoprolol that she was supposed to be taking outpatient setting, however she was refusing to take medication because she states that it does not work for her. She indicates that amlodipine and clonidine are the medications that do help her. Patient was started on clonidine patch without any success and ultimately was put on Cardene drip for blood pressure management. Initial workup did indicate a mild equivocal troponin elevation which was secondary to demand ischemia from her hypertension. Follow-up cardiac enzymes have returned to normal. Cardiology was consulted who agreed with obtaining echocardiogram which results were noted. Cardiology recommended amlodipine 10 mg daily, continuing metoprolol 50 mg daily with clonidine as needed. When patient was started on that regimen she was able to be successfully weaned off of Cardene. Her blood pressure has remained stable and only required one breakthrough medication with a blood pressure only going up to 172/100. Patient no longer experiencing any cephalgia at this time. Patient is significantly improved at this time and very eager to go home. Case was discussed with cardiology. Current blood pressure this time is 136/68. Case management consulted to arrange for patient care assistance, blue card in order for patient to obtain blood pressure medications to help ensure that she can get her medications and not encounter life-threatening hypertension again, due to inability to obtain medications. - Time Spent with Patient Total time spent providing and/or coordinating discharge services: Greater than 30 minutes - Quality: VTE Deep Vein Thrombosis/Pulmonary Embolism Present on Admission: No Exam Vital signs: Vital Signs 12/12/17 08:30 12/12/17 08:45 12/12/17 09:00 Temperature Pulse Rate 100 H 90 96 H Respiratory Rate 28 H 13 19 Blood Pressure 171/96 H 145/95 H 154/76 H Pulse Oximetry 12/12/17 09:15 12/12/17 09:30 12/12/17 09:45 Temperature Pulse Rate 88 80 78 Respiratory Rate 10 L 10 L 14 Blood Pressure 157/95 H 149/83 H 144/77 H Pulse Oximetry 12/12/17 10:00 12/12/17 10:15 12/12/17 10:30 Temperature Pulse Rate 90 82 80 Respiratory Rate 13 11 L 10 L Blood Pressure 157/89 H 142/85 H 130/78 Pulse Oximetry 12/12/17 10:45 12/12/17 11:00 12/12/17 11:16 Temperature Pulse Rate 76 86 84 Respiratory Rate 11 L 21 23 Blood Pressure 131/72 156/72 H 155/79 H Pulse Oximetry 12/12/17 11:28 12/12/17 11:31 12/12/17 11:46 Temperature Pulse Rate 86 80 74 Respiratory Rate 28 H 24 12 Blood Pressure 148/93 H 151/88 H 136/88 Pulse Oximetry 12/12/17 12:25 12/12/17 13:02 12/12/17 14:00 Temperature 98.1 F Pulse Rate 80 76 88 Respiratory Rate 19 16 15 Blood Pressure 157/96 H 150/89 H 142/75 H Pulse Oximetry 12/12/17 15:02 12/12/17 16:02 12/12/17 17:02 Temperature 99.1 F 98.3 F Pulse Rate 86 80 80 Respiratory Rate 19 16 14 Blood Pressure 149/79 H 151/99 H 153/91 H Pulse Oximetry 12/12/17 19:02 12/12/17 20:00 12/12/17 20:16 Temperature 98.6 F Pulse Rate 76 74 Respiratory Rate 16 14 Blood Pressure 143/79 H 116/69 Pulse Oximetry 96 96 96 12/13/17 00:00 12/13/17 00:13 12/13/17 01:21 Temperature 98 F Pulse Rate 72 72 74 Respiratory Rate 16 16 15 Blood Pressure 172/100 H 178/119 H 154/95 H Pulse Oximetry 12/13/17 04:00 Temperature 98.6 F Pulse Rate 66 Respiratory Rate 13 Blood Pressure 136/68 Pulse Oximetry 97 Intake & Output 12/12/17 12/13/17 12/13/17 18:59 06:59 18:59 Intake Total 124 / 124 420 / 420 Output Total 800 / 800 Balance -676 / -676 420 / 420 Weight 57.2 kg Intake: IV 124 / 124 Cardene Inj 25 MG In NS Inj 240 124 / 124 ML @ 5 MG/HR 50 mls/hr IV.CONT TITRATE PRN Rx#:[id number] Oral 420 / 420 Output: Urine 800 / 800 Other: # Voids 4 Date of Last Bowel Movement 12/09/17 Narrative: GENERAL: Well-developed, well-nourished, in no acute distress. alert and orientated HEENT: Head is normocephalic without any lesions or masses noted. Facial features are symmetric. Eyes: Extraocular muscles are intact. Conjunctivae were clear. NECK: Supple without any masses. Trachea midline no deviation. No JVD, CARDIAC: Regular rhythm, regular rate. S1/S2 are heard. 2/6 ejection murmur, no gallops or rubs. LUNGS: Clear to auscultation bilaterally. No wheeze, rhonchi or rales. No use of accessory muscles on inspiration or expiration. ABDOMEN: Soft, nontender. Nondistended. Bowel sounds heard in all 4 quadrants. No organomegaly or masses. Negative rebound, negative guarding EXTREMITIES: No edema, pulses are equal bilaterally. No cyanosis or clubbing NEUROLOGY: Mood and affect appear appropriate. Cranial nerves II through XII grossly intact. Moving all extremities, speech is clear Results Procedures completed during hospitalization: ECHOCARDIOGRAM CONCLUSIONS The left ventricular systolic function is normal with an estimated ejection fraction in the range of 55-60%. Mild concentric left ventricular hypertrophy. Doppler parameters are consistent with impaired left ventricular relaxtion ( grade 1 diastolic dysfunction). [id number] mitral valve regurgitation. There is trace tricuspid valve regurgitation. Trivial pulmonary valve regurgitation. There is a trivial pericardial effusion present. No hemodynamically significant echocardiographic features were observed (no pre -tamponade physiology). Labs on day of discharge: Labs from last 24 hours 12/12/17 12/11/17 12/11/17 04:33 14:45 14:45 Total Creatine Kinase 59 Troponin I 0.05 Triglycerides 114 Cholesterol 156 LDL Cholesterol, Calc 89 HDL Cholesterol 44.6 Cholesterol/HDL Ratio 3.49 Ur Collection Duration Pending Ur 24 Hour Volume Pending Ur Epinephrine ug/Day Pending U Norepinephrine ug/Day Pending U Metanephrines 24 Hr Pending U Normetanephrine 24h Pending U Tot Metanephrine 24h Pending Urine Dopamine ug/Day Pending - Impressions ITS Impressions Chest X-Ray 12/10/17 16:59 CONCLUSION: No acute intrathoracic disease. Head CT 12/10/17 16:59 CONCLUSION: 1. Unremarkable CT scan of the brain. . Abdomen MRA 12/12/17 06:59 CONCLUSION: 1. Solitary bilateral renal arteries which are patent throughout their extent. No focal or high-grade stenosis is demonstrated. 2. Otherwise, unremarkable examination. Discharge Plan - Discharge Disposition Patient Disposition: 01 Discharge Home - Discharge Condition Condition: Stable - Discharge Order Discharge Orders: Discharge Order (Routine); Ordered 12/13/17 Ordered By: Darren Vazquez - Discharge Details Anticipated Discharge Date: 12/13/17 Discharge Comment: discharge home once arrangements made by case managment - Physicians Team Primary Care Provider: Primary Care Sarah Mclain Attending Provider: Clemencia Escalante Other Providers: Wagner Lamas MD
[2017-12-13] MEDS: amLODIPine 10 MG Tablet PO SCH (09:12)
[2017-12-13 10:33] VITALS: PULSE 85
[2017-12-13 10:37] VITALS: O2SAT 96
== END 2017-12-13 11:00 | disposition home or self-care (01) ==
LOC: PHED 16:28 → PHEDA 19:44 → PHICU 20:17 → PHEDA 20:30 → PHICU 12-11 14:13
PROVIDERS: ADMIT Internal Medicine; ATTEND Internal Medicine